=== PATIENT | male | born 1990 | race Caucasian/White ===

== ENCOUNTER 2024-05-02 14:03 | Emergency (ER) | payer OTHER, MEDICAID, SELFPAY ==
[2024-05-02] VITALS (8 sets, daily range): BP systolic 115–142; BP diastolic 62–80; PULSE 65–109; RESP 16–26; TEMP 36.8; O2SAT 97–100; BMI 20.9
--- NOTE | 2024-05-02 14:32 | DI.CT.S_ITS ---
PROCEDURE: CT ABDOMEN PELVIS W CON INDICATIONS: Right-sided flank pain, history of constipation TECHNIQUE: After the administration of intravenous contrast, axial sections acquired from the lung bases to the pubic symphysis. Coronal and sagittal reformats were performed. For radiation dose reduction, the following was used: automated exposure control, adjustment of mA and/or kV according to patient size. COMPARISON: None. FINDINGS: Image quality: Diagnostic. Lower Chest: No significant findings. ABDOMEN: Liver: No solid mass. Gallbladder: No radiopaque gallstones or wall thickening. Biliary ducts: No biliary dilation. Pancreas: No ductal dilation. Spleen: Size is within normal limits. Adrenal Glands: No adrenal nodules. Kidneys and Ureters: No hydronephrosis. No solid mass. No complex renal cystic lesion which requires follow up. Stomach and Bowel: Normal colonic caliber, without significant wall thickening. Normal appendix. Peritoneum: No abnormal intraperitoneal fluid. No free air. Ventral Wall: No significant ventral hernia. Abdominal Nodes: No retroperitoneal or mesenteric adenopathy by size criteria. Vessels: Aorta and inferior vena cava are normal in size. PELVIS: Pelvic Organs: Unremarkable. Bladder: No bladder wall thickening, accounting for underdistention. Pelvic Nodes: No enlarged lymph nodes. Miscellaneous: No inguinal hernias are seen. Bones: No aggressive osseous abnormality. IMPRESSION: No acute abdominal process noted. No hydronephrosis. Normal appendix. Unremarkable CT appearance of gallbladder. Dictated by: Jose Roberto Rodriguez M.D. on 05/02/2024 at 15:23 Approved by: Jose Roberto Rodriguez M.D. on 05/02/2024 at 15:29
[2024-05-02 14:38] LABS: Add Manual Diff / Slide Review NO; Basophils Absolute Auto 100 /uL (0-100); Basophils Percent Auto 0.8 % (0-2); Eosinophils Absolute Auto 100 /uL (0-450); Eosinophils Percent Auto 1.9 % (2-4); Hematocrit 49.5 % (41-53); Hemoglobin 16.7 g/dL (13.5-17.5); Lymphocytes Absolute Auto 2500 /uL (1100-4500); Lymphocytes Percent Auto 33.6 % (25-40); Mean Corpuscular HGB Conc 33.8 % (30-36); Mean Corpuscular Hemoglobin 28.8 PG (26-34); Mean Corpuscular Volume 85.1 fL (80-100); Monocytes Absolute Auto 600 /uL (0-900); Monocytes Percent Auto 7.4 % (3-14); Neutrophils Absolute Auto 4200 /uL (1500-7000); Neutrophils Percent Auto 56.3 % (50-75); Platelet Count 241 X10^3/uL (150-400); Red Blood Cell Count 5.82 X10^6/uL (4.5-5.9); Red Cell Distribution Width 14.1 % (11.6-14.8); White Blood Cell Count 7.5 X10^3/uL (4.5-11.0)
[2024-05-02] MEDS: KETOROLAC 30 MG/ML VIAL 15 MG IV (14:40)
[2024-05-02 14:43] LABS: Alanine Aminotransferase 37 IU/L (<50); Albumin 5.3 g/dL (3.5-5.0); Albumin Globulin Ratio 1.5 (1.0-2.8); Alkaline Phosphatase 64 U/L (38-126); Aspartate Aminotransferase 54 IU/L (17-59); BUN Creatinine Ratio 19.5 (6-22); Bilirubin Total 1.4 mg/dL (0.2-1.3); Blood Urea Nitrogen 16 mg/dL (9-20); Calcium 9.9 mg/dL (8.4-10.2); Carbon Dioxide 22 mmol/L (22-32); Chloride 104 mmol/L (98-107); Estimated Glomerular Filt Rate > 60 mL/min (>60); Globulin 3.5 g/dL (1.7-4.1); Glucose 101 mg/dL (70-100); HEMOLYSIS 24 (0-50); Lipase 52 U/L (23-300); Potassium 3.5 mmol/L (3.4-5.1); Sodium 139 mmol/L (137-145); Total Protein 8.8 g/dL (6.3-8.2)
[2024-05-02 15:03] LABS: Bacteria Urine Occasional (0-1); Mucus Urine 3+ (Negative); RBC Urine 0-1/HPF (0-5/HPF); Squamous Epithelial Cell Urine 0-1 /HPF (0-5/HPF); Urine Volume 10mL (spun); WBC Urine 0-1/HPF (0-5/HPF)
--- NOTE | 2024-05-02 16:36 | ED.BACK ---
HPI - Back Pain/Injury General Chief Complaint: Back Pain/Injury Stated Complaint: Sent from Urgent Care; Abd/Back Pain Time Seen by Provider: 05/02/24 14:31 Source: patient and family History of Present Illness HPI Narrative: Patient was a 33-year-old male here for evaluation of right-sided flank/abdominal pain. Symptoms started earlier today when he was stretching. Had what appears to be a syncopal event afterwards. He recently did have some constipation but had a normal bowel movement yesterday. Has not had a bowel movement today. No urinary symptoms. No skin changes. No chest pain or shortness of breath. Related Data Allergies Allergy/AdvReac Type Severity Reaction Status Date / Time No Known Drug Allergies Allergy Verified 05/02/24 14:05 Review of Systems Review of Systems ROS Unobtainable: All systems reviewed & are unremarkable except as noted in HPI and below Patient History Social History Smoking Status: Never smoker Smoking Status: Never smoker Exam Initial Vital Signs Initial Vital Signs: Vital Signs Temperature 98.2 F 05/02/24 14:05 Pulse Rate 109 H 05/02/24 14:05 Respiratory Rate 26 H 05/02/24 14:05 Blood Pressure 142/80 H 05/02/24 14:05 Pulse Oximetry 100 05/02/24 14:05 Oxygen Delivery Method Room Air 05/02/24 14:05 Const General: cooperative GI Inspection: normal to inspection and non-distended Other: Tender right upper quadrant without rebound or guarding Back/Spine/Pelvis Other: Right CVA tenderness Skin General: no rashes or lesions noted Neuro General: patient alert, patient awake and moves all extremities Course Orders Ordered: ED Orders 05/02/24 14:20 Complete Blood Count AUTO DIFF Stat Comprehensive Metabolic Panel Stat Lipase Stat 05/02/24 14:32 CT abdomen pelvis w con Stat 05/02/24 14:40 Urine Culture Stat Urine Microscopic Stat Discontinued Medications Ketorolac Tromethamine (Ketorolac 30 Mg/Ml Vial) 15 mg IV NOW ONE Stop: 05/02/24 14:32 Last Admin: 05/02/24 14:40 Dose: 15 mg Documented By: JEREMY Vital Signs Vital signs: Vital Signs - 8 hr 05/02/24 14:05 05/02/24 14:33 05/02/24 15:00 Temperature 98.2 F Pulse Rate 109 H 74 76 Respiratory Rate 26 H 17 17 Blood Pressure 142/80 H 130/73 Pulse Oximetry 100 97 98 Oxygen Delivery Method Room Air 05/02/24 15:00 05/02/24 15:22 05/02/24 15:22 Temperature Pulse Rate 70 Respiratory Rate 16 Blood Pressure 118/69 130/79 Pulse Oximetry 100 Oxygen Delivery Method 05/02/24 15:30 05/02/24 15:30 05/02/24 16:00 Temperature Pulse Rate 69 Respiratory Rate 17 Blood Pressure 120/72 117/71 Pulse Oximetry 97 Oxygen Delivery Method 05/02/24 16:00 05/02/24 16:30 05/02/24 16:30 Temperature Pulse Rate 70 65 Respiratory Rate 18 18 Blood Pressure 115/62 Pulse Oximetry 98 98 Oxygen Delivery Method MDM - Back Pain/Injury Lab Data Attestation: I reviewed the patient's lab results. 05/02/24 14:20 05/02/24 14:20 Labs: Lab Results 05/02/24 05/02/24 Range/Units 14:20 14:40 WBC 7.5 (4.5-11.0) X10^3/uL RBC 5.82 (4.5-5.9) X10^6/uL Hgb 16.7 (13.5-17.5) g/dL Hct 49.5 (41-53) % MCV 85.1 (80-100) fL MCH 28.8 (26-34) PG MCHC 33.8 (30-36) % RDW 14.1 (11.6-14.8) % Plt Count 241 (150-400) X10^3/uL Neut % (Auto) 56.3 (50-75) % Lymph % (Auto) 33.6 (25-40) % [place] % (Auto) 7.4 (3-14) % Eos % (Auto) 1.9 L (2-4) % Baso % (Auto) 0.8 (0-2) % Neut # (Auto) 4200 (6860-6643) /uL Lymph # (Auto) 2500 (0535-9599) /uL [place] # (Auto) 600 (0-900) /uL Eos # (Auto) 100 (0-450) /uL Baso # (Auto) 100 (0-100) /uL Sodium 139 (137-145) mmol/L Potassium 3.5 (3.4-5.1) mmol/L Chloride 104 (98-107) mmol/L Carbon Dioxide 22 (22-32) mmol/L BUN 16 (9-20) mg/dL Creatinine 0.82 (0.66-1.25) mg/dL Estimated GFR > 60 (>60) mL/min BUN/Creatinine Ratio 19.5 (6-22) Glucose 101 H (70-100) mg/dL Calcium 9.9 (8.4-10.2) mg/dL Total Bilirubin 1.4 H (0.2-1.3) mg/dL AST 54 (17-59) IU/L ALT 37 (<50) IU/L Alkaline Phosphatase 64 (38-126) U/L Total Protein 8.8 H (6.3-8.2) g/dL Albumin 5.3 H (3.5-5.0) g/dL Globulin 3.5 (1.7-4.1) g/dL Albumin/Globulin Ratio 1.5 (1.0-2.8) Lipase 52 (23-300) U/L Urine RBC 0-1/hpf (0-5/HPF) Urine WBC 0-1/hpf (0-5/HPF) Ur Squamous Epith Cells 0-1 /hpf (0-5/HPF) Urine Bacteria Occasional (0-1) (None) Urine Mucus 3+ H (Negative) Vol Urine Centrifuged 10ml (spun) Urine Dip Bedside Urine Glucose Negative Bedside Urine Bilirubin - Negative Bedside Urine Ketone +/- 5 Urine Specific [place] 1.010 Bedside Urine Occult Blood - Negative Bedside Urine pH 8.5 Bedside Urine Protein - Negative Bedside Urine Urobilinogen - Negative Bedside Urine Nitrite - Negative Bedside Urine Leukocytes +/- [address] scan - abdomen/pelvis: Radiologist's Impression: PROCEDURE: CT ABDOMEN PELVIS W CON INDICATIONS: Right-sided flank pain, history of constipation TECHNIQUE: After the administration of intravenous contrast, axial sections acquired from the lung bases to the pubic symphysis. Coronal and sagittal reformats were performed. For radiation dose reduction, the following was used: automated exposure control, adjustment of mA and/or kV according to patient size. COMPARISON: None. FINDINGS: Image quality: Diagnostic. Lower Chest: No significant findings. ABDOMEN: Liver: No solid mass. Gallbladder: No radiopaque gallstones or wall thickening. Biliary ducts: No biliary dilation. Pancreas: No ductal dilation. Spleen: Size is within normal limits. Adrenal Glands: No adrenal nodules. Kidneys and Ureters: No hydronephrosis. No solid mass. No complex renal cystic lesion which requires follow up. Stomach and Bowel: Normal colonic caliber, without significant wall thickening. Normal appendix. Peritoneum: No abnormal intraperitoneal fluid. No free air. Ventral Wall: No significant ventral hernia. Abdominal Nodes: No retroperitoneal or mesenteric adenopathy by size criteria. Vessels: Aorta and inferior vena cava are normal in size. PELVIS: Pelvic Organs: Unremarkable. Bladder: No bladder wall thickening, accounting for underdistention. Pelvic Nodes: No enlarged lymph nodes. Miscellaneous: No inguinal hernias are seen. Bones: No aggressive osseous abnormality. IMPRESSION: No acute abdominal process noted. No hydronephrosis. Normal appendix. Unremarkable CT appearance of gallbladder. MDM Narrative Medical decision making narrative: CT scans unremarkable. No skin changes concerning for zoster. Low suspicion for gallbladder pathology. No indication for admission to the hospital or emergent surgical intervention. I do suspect that this is muscular in origin given the nature of his presenting symptoms. Recommended conservative measures for now to include Tylenol and ibuprofen. He was given return precautions. He expressed understanding and agreement. Discharge Plan Departure Patient Disposition: Home Clinical Impression: Acute chest wall pain, Abdominal pain Instructions: DI for Abdominal Pain-Adult Activity Restrictions/Additional Instructions: I do recommend conservative measures such as Tylenol and/or ibuprofen. Light stretching can be helpful as well. I also recommend that you continue to do what you need to in order to have normal bowel movements like we discussed. Return to the emergency department for new symptoms. Referrals: Delfina Shirley PA-C [Primary Care Provider] - Stand Alone Forms: Patient Portal/API/Survey
== END 2024-05-02 17:10 | disposition home or self-care (01) ==
PROVIDERS: Emergency Provider Emergency Medicine; Family Provider Nurse Practitioner Family; PCP Physician Assistant
DX: R10.11 Right upper quadrant pain (principal); R07.89 Other chest pain
CPT/HCPCS: 36415; 74177; 80053; 81003; 81015; 83690; 85025; 87086; 96374; 99284; J1885; Q9967